=== PATIENT | male | born 1955 | race Two or more races ===

== ENCOUNTER 2019-04-10 10:44 | Emergency (ER) | payer MEDICARE ==
[~2019-04-10] VITALS: Ht 185.4 cm; Wt 86.2 kg
--- NOTE | 2019-04-10 10:32 | NUR ---
ED Nurse Note: pt presents to ED via EMS with multiple wounds on his bilat lower extremities, upper extremeties and one on his R chest about 1 week ago. some are healed scars, others are open wounds with purulent drainage. they are about 1.0 cm with the largest one being about 2 cm wide. pt does not report any pain other than if he touches or scratches the abscesses. pt states that the nurse at [facility] was concered about veronica abscesses and called EMS for him to come in. pt has a h/o schizphrenia. his PCP is Dr. Hernandez, his psychiatrist is Dr. Tinajero
[2019-04-10 10:38] VITALS: BP 132/78
[~2019-04-10 10:44] MED LIST: RISPERDAL0.25 MG ORAL; RISPERDAL1 MG/1 ML PO
[2019-04-10 10:48] VITALS: BP 141/78
[2019-04-10] MEDS ORDERED: BACITRACIN1 EACH TOPIC (11:05)
[2019-04-10] MEDS ORDERED: CEPHALEXIN500 MG ORAL (11:05)
--- NOTE | 2019-04-10 11:14 | Emergency Room Report ---
History of Present Illness General Chief Complaint: Skin Rash/Abscess Source: Patient Present Illness HPI Patient presents complaining that there was some increased redness and previous blister formation on the right lower leg Patient was at a nursing facility and is at an extended care facility at this time and reports that he was told to come for further evaluation Patient has some mild discomfort to the right lateral leg denies any fevers or chills denies any chest pain reports that the lesions have been ongoing for the past several weeks Allergies: Coded Allergies: No Known Allergies (Unverified , 04/10/19) Patient History Past Medical History: see triage record Reviewed Nursing Documentation: PMH: Agreed; PSxH: Agreed Nursing Documentation-PMH Hx Cardiac Problems: No - Schizophrenia Review of Systems All Other Systems: negative except mentioned in HPI Physical Exam Vital Signs Date Time Temp Pulse Resp B/P (MAP) Pulse Ox O2 Delivery O2 Flow Rate FiO2 04/10/19 10:28 98.1 80 18 132/78 (96) 97 Room Air Sp02 EP Interpretation: reviewed, normal General Appearance: well appearing, no apparent distress Head: normocephalic, atraumatic Eyes: bilateral eye PERRL, bilateral eye EOMI ENT: hearing grossly normal, normal pharynx, TMs + canals normal, uvula midline Neck: full range of motion, supple, no meningismus, no bony tend Respiratory: lungs clear, normal breath sounds, no rhonchi, no respiratory distress, no retraction, no accessory muscle use Cardiovascular #1: normal peripheral pulses, regular rate, rhythm, no edema, no gallop, no JVD, no murmur Gastrointestinal: normal bowel sounds, non tender, soft, no mass, no organomegaly, non-distended, no guarding, no hernia, no pulsatile mass, no rebound Genitourinary: no CVA tenderness Musculoskeletal: normal inspection Neurologic: oriented x3, responsive, enrichment teacher III-XII nml as tested, motor strength/ tone normal, sensory intact Psychiatric: mood/affect normal Skin: other - Multiple areas of what appear to be likely insect bite, almost all of the lesions appear to be coming into's appears to be consistent with spider bites, there are multiple areas in the left upper arm bilateral legs there is a specific area that the patient presented for on the right lateral leg which shows some mild erythema surrounding it no obvious fluctuance, Lymphatic: normal inspection, no adenopathy Medical Decision Making Diagnostic Impression: Primary Impression: insect bite Additional Impression: cellulitis ER Course The exam and the findings are consistent with what appears to be likely insect bites there does appear to be one in specific on the right lateral Lower leg that could have some secondary cellulitis patient will have initial oral antibiotic trial and return with any changes or concerns Last Vital Signs Date Time Temp Pulse Resp B/P (MAP) Pulse Ox O2 Delivery O2 Flow Rate FiO2 04/10/19 10:48 98.1 25 141/78 100 Room Air 04/10/19 10:28 80 Status: improved Disposition: HOME, SELF-CARE Condition: Improved Scripts Bacitracin (BACITRACIN*) 1 Each Packet 1 PACKET TOPIC DAILY for 20 Days, #30 PACKET 0 Refills Prov: Libia Campoverde DO 04/10/19 Cephalexin* (KEFLEX*) 500 Mg Capsule 500 MG ORAL EVERY 6 HOURS for 10 Days, CAP Prov: Libia Campoverde DO 04/10/19 Referrals: [facility]. [facility] Patient Instructions: Insect Bite, [id number] Additional Instructions: Patient is provided with the discharge instructions notified to follow up with primary doctor in the next 2-3 days otherwise return to the er with any worsening symptoms. Please note that this report is being documented using [employer] technology. This can lead to erroneous entry secondary to incorrect interpretation by the dictating instrument. Libia Campoverde DO Apr 10, 2019 11:14
[2019-04-10] MEDS ORDERED: Cephalexin 500mg cap ORAL ONE (11:15)
[2019-04-10 11:20] VITALS: BP 133/80
--- NOTE | 2019-04-10 11:23 | NUR ---
ER DISCHARGE NOTE: Patient is cleared to be discharged per ERMD, pt is aox4, on room air, with stable vital signs. pt was given dc and prescription instructions, pt was able to verbalize understanding, pt id band removed without complications. pt is able to ambulate with steady gait. pt took all belongings.
--- NOTE | 2019-04-10 11:24 | NUR ---
Soy Lorenz howard informed CHARAN drew that the patient will be going back. patient in room at no distress at this time awaiting transport
--- NOTE | 2019-04-10 12:52 | NUR ---
ED Nurse Note: [facility] has arrived to transport pt back to [facility]. pt is stable and in no acute distress at this time
== END 2019-04-10 12:50 | disposition home or self-care (01) ==
LOC: EDBD 10:44 → EMR 11:00
DX: S40.862A Insect bite (nonvenomous) of left upper arm, initial encounter (principal); S80.862A Insect bite (nonvenomous), left lower leg, initial encounter; S80.861A Insect bite (nonvenomous), right lower leg, initial encounter; L03.115 Cellulitis of right lower limb; F20.9 Schizophrenia, unspecified; W57.XXXA Bitten or stung by nonvenomous insect and other nonvenomous arthropods, initial encounter; Y92.9 Unspecified place or not applicable
CPT/HCPCS: 99283